=== PATIENT | female | born 1965 | race Caucasian/White ===

== ENCOUNTER 2020-03-26 20:24 | Emergency (ER) | payer OTHER ==
[2020-03-26] MEDS ORDERED: Aspirin 81 MG Tab.Chew PO ONE (20:39)
[2020-03-26] MEDS ORDERED: Sodium Chloride 0.9% 10 ML Syringe FLUSH PRN (20:39)
--- NOTE | 2020-03-26 21:00 | EDM.PDOC ---
<SydNarayan Milagros - Last Filed: 03/27/20 00:35> ED HPI GENERAL MEDICAL PROBLEM - General Chief Complaint: Chest Pain Stated Complaint: CHEST PAIN Time Seen by Provider: 03/26/20 20:34 - Related Data Allergies Allergy/AdvReac Type Severity Reaction Status Date / Time cantaloupe Allergy Anaphylactic Verified 03/26/20 20:40 Shock Home Meds: Home Meds . [No Known Home Meds] 03/26/20 [History] Course - Vital Signs Last Recorded V/S: Last Vital Signs Temp 98.3 F 03/27/20 00:30 Pulse 52 L 03/27/20 00:30 Resp 16 03/27/20 00:30 BP 109/70 03/27/20 00:30 Pulse Ox 97 03/27/20 00:30 - Orders/Labs/Meds Labs: Laboratory Tests 03/26/20 03/26/20 03/26/20 Range/Units 20:35 20:35 20:35 WBC 11.97 H (3.98-10.04) K/mm3 RBC 5.17 (3.98-5.22) M/mm3 Hgb 15.4 (11.2-15.7) gm/dl Hct 45.8 H (34.1-44.9) % MCV 88.6 (79.4-94.8) fl MCH 29.8 (25.6-32.2) pg MCHC 33.6 (32.2-35.5) g/dl RDW Std Deviation 43.0 (36.4-46.3) fL Plt Count 264 (182-369) K/mm3 MPV 10.5 (9.4-12.3) fl Neut % (Auto) 52.2 (34.0-71.1) % Lymph % (Auto) 36.8 (19.3-51.7) % [place] % (Auto) 6.3 (4.7-12.5) % Eos % (Auto) 4.1 (0.7-5.8) Baso % (Auto) 0.3 (0.1-1.2) % Neut # (Auto) 6.26 H (1.56-6.13) K/mm3 Lymph # (Auto) 4.40 H (1.18-3.74) K/mm3 [place] # (Auto) 0.76 H (0.24-0.36) K/mm3 Eos # (Auto) 0.49 H (0.04-0.36) K/mm3 Baso # (Auto) 0.03 (0.01-0.08) K/mm3 Manual Slide Review Normal smear D-Dimer, Quantitative 0.32 (0.19-0.50) mg/L Sodium 144 (136-145) mEq/L Potassium 3.8 (3.5-5.1) mEq/L Chloride 105 (98-107) mEq/L Carbon Dioxide 29 (21-32) mEq/L Anion Gap 13.8 (5-15) BUN 10 (7-18) mg/dL Creatinine 1.0 (0.55-1.02) mg/dL Est Cr Clr Drug Dosing 56.53 mL/min Estimated GFR (MDRD) 57 (>60) mL/min BUN/Creatinine Ratio 10.0 L (14-18) Glucose 121 H (74-106) mg/dL Calcium 9.1 (8.5-10.1) mg/dL Total Bilirubin 0.8 (0.2-1.0) mg/dL AST 67 H (15-37) U/L ALT 43 (14-59) U/L Alkaline Phosphatase 122 H (46-116) U/L Troponin I < 0.017 (0.00-0.056) ng/mL Total Protein 8.4 H (6.4-8.2) g/dl Albumin 4.6 (3.4-5.0) g/dl Globulin 3.8 gm/dL Albumin/Globulin Ratio 1.2 (1-2) 03/26/20 Range/Units 23:30 WBC (3.98-10.04) K/mm3 RBC (3.98-5.22) M/mm3 Hgb (11.2-15.7) gm/dl Hct (34.1-44.9) % MCV (79.4-94.8) fl MCH (25.6-32.2) pg MCHC (32.2-35.5) g/dl RDW Std Deviation (36.4-46.3) fL Plt Count (182-369) K/mm3 MPV (9.4-12.3) fl Neut % (Auto) (34.0-71.1) % Lymph % (Auto) (19.3-51.7) % [place] % (Auto) (4.7-12.5) % Eos % (Auto) (0.7-5.8) Baso % (Auto) (0.1-1.2) % Neut # (Auto) (1.56-6.13) K/mm3 Lymph # (Auto) (1.18-3.74) K/mm3 [place] # (Auto) (0.24-0.36) K/mm3 Eos # (Auto) (0.04-0.36) K/mm3 Baso # (Auto) (0.01-0.08) K/mm3 Manual Slide Review D-Dimer, Quantitative (0.19-0.50) mg/L Sodium (136-145) mEq/L Potassium (3.5-5.1) mEq/L Chloride (98-107) mEq/L Carbon Dioxide (21-32) mEq/L Anion Gap (5-15) BUN (7-18) mg/dL Creatinine (0.55-1.02) mg/dL Est Cr Clr Drug Dosing mL/min Estimated GFR (MDRD) (>60) mL/min BUN/Creatinine Ratio (14-18) Glucose (74-106) mg/dL Calcium (8.5-10.1) mg/dL Total Bilirubin (0.2-1.0) mg/dL AST (15-37) U/L ALT (14-59) U/L Alkaline Phosphatase (46-116) U/L Troponin I < 0.017 (0.00-0.056) ng/mL Total Protein (6.4-8.2) g/dl Albumin (3.4-5.0) g/dl Globulin gm/dL Albumin/Globulin Ratio (1-2) Meds: Medications Discontinued Medications Generic Name Dose Route Start Last Admin Trade Name Freq PRN Reason Stop Dose Admin Aspirin 324 mg 03/26/20 20:39 03/26/20 20:43 Aspirin PO 03/26/20 20:40 324 mg ONETIME ONE Administration Sodium Chloride 10 ml 03/26/20 20:39 03/26/20 20:44 Saline Flush FLUSH 10 ml ASDIRECTED PRN Administration Keep Vein Open - Re-Assessments/Exams Free Text/Narrative Re-Assessment/Exam: 03/27/20 00:35 Patient second troponin came back negative. 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 I did use the heart score to evaluate her risk and she has a heart score of 3 one-point for a moderate Jordon suspicious history one- point for her age and one point for risk factors namely family history her troponins were negative. I did inform her her heart score came out to 3 which is considered low risk however 1.7% of the people that have the score applied to them will have a major coronary artery event within the next 6 weeks. The patient understands this and wishes to be discharged home. The patient needs to discuss with her regular provider the pros and cons of having a stress test done. I think given her running history and no anginal equivalents with this her situation is very reassuring however underlying coronary artery disease cannot be fully excluded. Departure - Departure Time of Disposition: 00:37 Disposition: Home, Self-Care 01 Clinical Impression: Atypical chest pain Instructions: Nonspecific Chest Pain, Adult, [id number] Referrals: Joanna Schulte PA-C [Primary Care Provider] - Forms: ED Department Discharge Additional Instructions: You were seen in the emergency department today for an episode of midsternal chest pain. Your work-up included blood work, an EKG of your heart, and a chest x-ray. Your work-up was found to be normal. Your cardiac enzymes did not elevate indicating that you did not have a heart attack. While the exact cause of your pain is unknown, it is possible that it is the result of esophageal spasm. I would recommend that you schedule follow-up appointment with your primary care provider for next week and discussed the option of an outpatient stress test. If you should experience any recurrence of chest pain or any other symptoms of concern, please do not hesitate to return to the emergency department. Sepsis Event Note - Focused Exam Date Exam was Performed: 03/27/20 Time Exam was Performed: 00:35 <Chelsie Merritt - Last Filed: 03/30/20 11:15> ED HPI GENERAL MEDICAL PROBLEM - General Source of Information: Reports: Patient History Limitations: Reports: No Limitations - History of Present Illness INITIAL COMMENTS - FREE TEXT/NARRATIVE: Patient is a 54-year-old female who presents to the emergency department with acute onset of retrosternal chest pain that started approximately 30 minutes prior to arrival. Patient states that she was taping off a doorway when the pain began. She described it as a dull pressure in her lower sternal area. She denies shortness of breath, nausea or diaphoresis associated with this pain. The pain has improved immensely since arriving to the ER. She has no significant cardiac history and has never had an UT that she is aware of. She states that she has had pain similar to this in the past, however she has never come to the ER for it and it generally resolves on its own. She states that she does normally have bradycardia. She denies history of GERD. 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 Denies: Fever, Chills, Diaphoresis HEENT: Reports: No Symptoms Respiratory: Reports: No Symptoms. Denies: Shortness of Breath, Cough Cardiovascular: Reports: Chest Pain. Denies: Dyspnea on Exertion, Lightheadedness, Palpitations, Syncope Endocrine: Reports: No Symptoms GI/Abdominal: Reports: No Symptoms. Denies: Abdominal Pain, Nausea, Vomiting : Reports: No Symptoms Musculoskeletal: Reports: No Symptoms Skin: Reports: No Symptoms Neurological: Reports: No Symptoms Psychiatric: Reports: No Symptoms Hematologic/Lymphatic: Reports: No Symptoms Immunologic: Reports: No Symptoms ED EXAM, GENERAL - Physical Exam Exam: See Below Exam Limited By: No Limitations General Appearance: Alert, WD/WN, No Apparent Distress Respiratory/Chest: No Respiratory Distress, Lungs Clear, Normal Breath Sounds, No Accessory Muscle Use, Chest Non-Tender Cardiovascular: Normal Peripheral Pulses, Regular Rate, Rhythm, No Edema, No Gallop, No JVD, No Murmur, No Rub GI/Abdominal: Normal Bowel Sounds, Soft, No Organomegaly, No Distention, No Abnormal Bruit, No Mass, Tender (Epigastric) Extremities: Normal Inspection, Normal Range of Motion, Non-Tender, Normal Capillary Refill, No Pedal Edema Neurological: Alert, Oriented, CN II-XII Intact, Normal Cognition, Normal Gait, Normal Reflexes, No Motor/Sensory Deficits Psychiatric: Normal Affect, Normal Mood Skin Exam: Warm, Dry, Intact, Normal Color, No Rash EKG INTERPRETATION EKG Date: 03/26/20 Time: 20:32 Rhythm: NSR Rate (Beats/Min): 49 Powell: Normal P-Wave: Present QRS: Normal ST-T: Normal QT: Normal Comparison: NA - No Prior EKG EKG Interpretation Comments: Nondiagnostic ST depression EKG interpreted by Dr. Syd MD. Course - Orders/Labs/Meds Labs: Laboratory Tests 03/26/20 03/26/20 03/26/20 Range/Units 20:35 20:35 20:35 WBC 11.97 H (3.98-10.04) K/mm3 RBC 5.17 (3.98-5.22) M/mm3 Hgb 15.4 (11.2-15.7) gm/dl Hct 45.8 H (34.1-44.9) % MCV 88.6 (79.4-94.8) fl MCH 29.8 (25.6-32.2) pg MCHC 33.6 (32.2-35.5) g/dl RDW Std Deviation 43.0 (36.4-46.3) fL Plt Count 264 (182-369) K/mm3 MPV 10.5 (9.4-12.3) fl Neut % (Auto) 52.2 (34.0-71.1) % Lymph % (Auto) 36.8 (19.3-51.7) % [place] % (Auto) 6.3 (4.7-12.5) % Eos % (Auto) 4.1 (0.7-5.8) Baso % (Auto) 0.3 (0.1-1.2) % Neut # (Auto) 6.26 H (1.56-6.13) K/mm3 Lymph # (Auto) 4.40 H (1.18-3.74) K/mm3 [place] # (Auto) 0.76 H (0.24-0.36) K/mm3 Eos # (Auto) 0.49 H (0.04-0.36) K/mm3 Baso # (Auto) 0.03 (0.01-0.08) K/mm3 Manual Slide Review Normal smear D-Dimer, Quantitative 0.32 (0.19-0.50) mg/L Sodium 144 (136-145) mEq/L Potassium 3.8 (3.5-5.1) mEq/L Chloride 105 (98-107) mEq/L Carbon Dioxide 29 (21-32) mEq/L Anion Gap 13.8 (5-15) BUN 10 (7-18) mg/dL Creatinine 1.0 (0.55-1.02) mg/dL Est Cr Clr Drug Dosing 56.53 mL/min Estimated GFR (MDRD) 57 (>60) mL/min BUN/Creatinine Ratio 10.0 L (14-18) Glucose 121 H (74-106) mg/dL Calcium 9.1 (8.5-10.1) mg/dL Total Bilirubin 0.8 (0.2-1.0) mg/dL AST 67 H (15-37) U/L ALT 43 (14-59) U/L Alkaline Phosphatase 122 H (46-116) U/L Troponin I < 0.017 (0.00-0.056) ng/mL Total Protein 8.4 H (6.4-8.2) g/dl Albumin 4.6 (3.4-5.0) g/dl Globulin 3.8 gm/dL Albumin/Globulin Ratio 1.2 (1-2) /14 Range/Units 23:30 WBC (3.98-10.04) K/mm3 RBC (3.98-5.22) M/mm3 Hgb (11.2-15.7) gm/dl Hct (34.1-44.9) % MCV (79.4-94.8) fl MCH (25.6-32.2) pg MCHC (32.2-35.5) g/dl RDW Std Deviation (36.4-46.3) fL Plt Count (182-369) K/mm3 MPV (9.4-12.3) fl Neut % (Auto) (34.0-71.1) % Lymph % (Auto) (19.3-51.7) % [place] % (Auto) (4.7-12.5) % Eos % (Auto) (0.7-5.8) Baso % (Auto) (0.1-1.2) % Neut # (Auto) (1.56-6.13) K/mm3 Lymph # (Auto) (1.18-3.74) K/mm3 [place] # (Auto) (0.24-0.36) K/mm3 Eos # (Auto) (0.04-0.36) K/mm3 Baso # (Auto) (0.01-0.08) K/mm3 Manual Slide Review D-Dimer, Quantitative (0.19-0.50) mg/L Sodium (136-145) mEq/L Potassium (3.5-5.1) mEq/L Chloride (98-107) mEq/L Carbon Dioxide (21-32) mEq/L Anion Gap (5-15) BUN (7-18) mg/dL Creatinine (0.55-1.02) mg/dL Est Cr Clr Drug Dosing mL/min Estimated GFR (MDRD) (>60) mL/min BUN/Creatinine Ratio (14-18) Glucose (74-106) mg/dL Calcium (8.5-10.1) mg/dL Total Bilirubin (0.2-1.0) mg/dL AST (15-37) U/L ALT (14-59) U/L Alkaline Phosphatase (46-116) U/L Troponin I < 0.017 (0.00-0.056) ng/mL Total Protein (6.4-8.2) g/dl Albumin (3.4-5.0) g/dl Globulin gm/dL Albumin/Globulin Ratio (1-2) - Re-Assessments/Exams Free Text/Narrative Re-Assessment/Exam: 03/26/20 21:57 Work-up thus far has been grossly unremarkable. Troponin was found to be negative., D-dimer is in the normal range. EKG was negative for any acute ischemia. Chest x-ray was normal. We will plan to repeat a troponin at 3 hours from the original draw. 03/26/20 23:15 Patient can continues to be pain-free. I have ordered a repeat troponin and EKG at 2330. Case discussed with Dr. Velarde. He will assume care and disposition of the patient. Departure - Departure Condition: Good Sepsis Event Note - Evaluation Sepsis Screening Result: No Definite Risk - Focused Exam Date Exam was Performed: 03/30/20 Time Exam was Performed: 11:15
--- NOTE | 2020-03-27 07:51 | CR ---
Chest: 2 views of the chest were obtained. Comparison: No prior chest imaging is available. Heart size and mediastinum are normal. Lungs are clear with no acute parenchymal change. Bony structures are unremarkable. Impression: 1. Nothing acute is seen on 2 view chest x-ray. Diagnostic code #1 This report was dictated in MDT
== END 2020-03-27 00:41 | disposition home or self-care (01) ==
LOC: JD.ED 20:24
DX: R07.89 Other chest pain (principal); Z91.018 Allergy to other foods
CPT/HCPCS: 36415; 71046; 80053; 84484; 85025; 85379; 93005; 99285; A9270

== ENCOUNTER 2022-04-01 07:57 | Inpatient (IN) | payer OTHER ==
[2022-04-01] MEDS ORDERED: Sodium Chloride 0.9% 10 ML Syringe FLUSH PRN ×2 (08:02→20:49)
[2022-04-01] MEDS ORDERED: Lactated Ringers 1,000 ML IV SCH (08:15)
[2022-04-01] MEDS ORDERED: Sodium Chloride 0.9% 10 ML Syringe FLUSH SCH (09:00)
[2022-04-01] MEDS ORDERED: Acetaminophen 325 MG Tab PO SCH ×2 (13:00→14:00)
[2022-04-01] MEDS ORDERED: Gabapentin 300 MG Cap PO SCH ×2 (13:00→14:00)
[2022-04-01] MEDS ORDERED: Lidocaine 1% with EPINEPHrine 1:100,000 20 ML MDV ONE ×2 (15:27→15:36)
[2022-04-01] MEDS ORDERED: Bupivacaine 0.5%/EPINEPHrine 1:200,000 50 ML MDV ONE (15:27)
[2022-04-01] MEDS ORDERED: Propofol 200 MG/20 ML SDV ONE ×2 (15:29→20:06)
[2022-04-01] MEDS ORDERED: fentaNYL 250 MCG/5 ML SDV ONE ×2 (15:29→19:36)
[2022-04-01] MEDS ORDERED: Lidocaine 1% 4 ML ONE (15:29)
[2022-04-01] MEDS ORDERED: Midazolam 1 MG/ML 2 ML SDV ONE (15:29)
[2022-04-01] MEDS ORDERED: Dexamethasone 4 MG/ML 5 ML MDV ONE (15:32)
[2022-04-01] MEDS ORDERED: Ondansetron 4 MG/2 ML SDV ONE (15:32)
[2022-04-01] MEDS ORDERED: Rocuronium 50 MG/5 ML Vial ONE ×2 (15:32→18:05)
[2022-04-01] MEDS ORDERED: Scopolamine 1.5 MG Transdermal Patch TOP STA (15:58)
[2022-04-01] MEDS ORDERED: Ondansetron 4 MG/2 ML SDV IVPUSH PRN (16:00)
[2022-04-01] MEDS ORDERED: fentaNYL 100 MCG/2 ML SDV IVPUSH PRN (16:00)
[2022-04-01] MEDS ORDERED: HYDROmorphone 0.5 MG/0.5 ML Syringe IVPUSH PRN ×2 (16:00→20:42)
[2022-04-01] MEDS ORDERED: ceFAZolin 1 GM Vial ONE (17:05)
[2022-04-01] MEDS ORDERED: Lactated Ringers 1,000 ML ONE ×5 (17:46→20:35)
[2022-04-01] MEDS ORDERED: Lidocaine 1% 2 ML ONE (17:50)
[2022-04-01] MEDS ORDERED: Ketorolac 30 MG/ML SDV ONE (17:55)
[2022-04-01] MEDS ORDERED: HYDROmorphone 0.5 MG/0.5 ML Syringe ONE ×2 (17:59→18:30)
[2022-04-01] MEDS ORDERED: fentaNYL 100 MCG/2 ML SDV ONE (19:36)
[2022-04-01] MEDS ORDERED: oxyCODONE 5 MG Tab PO PRN (20:29)
[2022-04-01] MEDS ORDERED: Dextrose 5%-0.45% NaCl 1,000 ML IV SCH (20:30)
[2022-04-01] MEDS: Ibuprofen 600 MG Tab PO SCH (22:13)
[2022-04-01] MEDS: Acetaminophen 325 MG Tab PO SCH (22:14)
[2022-04-01] MEDS: metroNIDAZOLE/Normal Saline 500 MG in Premix Bag 1 BAG IV ONE ×2 (23:17→23:18)
[2022-04-01] MEDS: metroNIDAZOLE/Normal Saline 500 MG in Premix Bag 1 BAG IV SCH (23:18)
[2022-04-01] MEDS: Ondansetron 4 MG Tab.DIS PO SCH (23:58)
[2022-04-02] MEDS: ceFAZolin 1 GM in Sodium Chloride 0.9% 50 ML IV SCH ×3 (00:23→06:08)
[2022-04-02] MEDS: Acetaminophen 325 MG Tab PO SCH ×7 (00:43→23:47)
[2022-04-02] MEDS: Ibuprofen 600 MG Tab PO SCH ×5 (00:54→19:57)
[2022-04-02] MEDS: Ondansetron 4 MG Tab.DIS PO SCH ×4 (05:44→19:57)
[2022-04-02] MEDS: Pantoprazole 40 MG Tab.CR PO SCH (08:45)
[2022-04-02] MEDS: Heparin Sodium 5,000 Units/ML Vial SUBCUT SCH ×3 (08:45→23:46)
[2022-04-02] MEDS: metroNIDAZOLE/Normal Saline 500 MG in Premix Bag 1 BAG IV SCH (08:46)
[2022-04-02] MEDS ORDERED: Non-Formulary Medication 1 Each (Pantoprazole Sodium 40 MG Tablet.Dr) PO SCH (09:00)
[2022-04-03] MEDS: Ondansetron 4 MG Tab.DIS PO SCH ×2 (02:14→08:46)
[2022-04-03] MEDS: Ibuprofen 600 MG Tab PO SCH ×2 (02:14→08:46)
[2022-04-03] MEDS: Acetaminophen 325 MG Tab PO SCH ×2 (04:55→08:47)
[2022-04-03] MEDS: Heparin Sodium 5,000 Units/ML Vial SUBCUT SCH (08:46)
[2022-04-03] MEDS: Pantoprazole 40 MG Tab.CR PO SCH (08:46)
== END 2022-04-03 12:04 | disposition home or self-care (01) | DRG 329 ==
LOC: JD.MS 12:29
PROVIDERS: ADMIT Surgery; ATTEND Surgery
PROC: 0DTF0ZZ Resection of Right Large Intestine, Open Approach (ICD-10-PCS; principal; 2022-04-01)
PROC: 0WQF0ZZ Repair Abdominal Wall, Open Approach (ICD-10-PCS; 2022-04-01)
PROC: 0DBU0ZZ Excision of Omentum, Open Approach (ICD-10-PCS; 2022-04-01)
DX: D37.3 Neoplasm of uncertain behavior of appendix (principal); K35.33 Acute appendicitis with perforation, localized peritonitis, and gangrene, with abscess; E61.1 Iron deficiency; K42.9 Umbilical hernia without obstruction or gangrene; R59.1 Generalized enlarged lymph nodes; Z79.899 Other long term (current) drug therapy; Z91.018 Allergy to other foods
CPT/HCPCS: 36415; 80048; 85025; 86850; 86900; 86901; A9270-GY; J0690; J1100; J1170; J1644; J1885; J2250; J2405; J2704; J2710; J3010; J3490; J7042; J7120

== ENCOUNTER 2022-05-18 07:05 | Day surgery (SDC) | payer OTHER ==
[~2022-05-18 07:05] MED LIST: Lactated Ringers 1,000 ML IV SCH; Lidocaine 1%/Sod Bicarbonate in NS 8.4% 1 ML Syringe IDERM PRN; Sodium Chloride 0.9% 10 ML Syringe FLUSH PRN; Sodium Chloride 0.9% 10 ML Syringe FLUSH SCH
[2022-05-18] MEDS ORDERED: Propofol 200 MG/20 ML SDV ONE ×2 (07:06→08:59)
[2022-05-18] MEDS ORDERED: ceFAZolin 2 GM Vial ONE (07:06)
[2022-05-18] MEDS ORDERED: fentaNYL 100 MCG/2 ML SDV ONE (07:06)
[2022-05-18] MEDS ORDERED: Midazolam 1 MG/ML 2 ML SDV ONE (07:06)
[2022-05-18] MEDS ORDERED: Lidocaine 1% 4 ML ONE (07:06)
[2022-05-18] MEDS ORDERED: Ondansetron 4 MG/2 ML SDV ONE (07:06)
[2022-05-18] MEDS ORDERED: Lactated Ringers 1,000 ML ONE (07:06)
[2022-05-18] MEDS ORDERED: Lidocaine 1% with EPINEPHrine 1:100,000 20 ML MDV ONE (07:20)
[2022-05-18] MEDS ORDERED: Scopolamine 1.5 MG Transdermal Patch TRDERM PRN (08:00)
[2022-05-18] MEDS ORDERED: ePHEDrine 50 MG/ML SDV ONE (08:25)
[2022-05-18] MEDS ORDERED: Ondansetron 4 MG/2 ML SDV IVPUSH PRN (08:35)
[2022-05-18] MEDS ORDERED: fentaNYL 100 MCG/2 ML SDV IVPUSH PRN (08:35)
[2022-05-18] MEDS ORDERED: ePHEDrine 50 MG/ML SDV IVPUSH PRN (08:35)
[2022-05-18] MEDS ORDERED: Phenylephrine 1% 10 MG/ML SDV IVPUSH PRN (08:35)
[2022-05-18] MEDS ORDERED: diphenhydrAMINE 50 MG/ML SDV IVPUSH PRN (08:35)
[2022-05-18] MEDS: Lidocaine 1% with EPINEPHrine 1:100,000 20 ML MDV ONE ×2 (08:36→08:55)
[2022-05-18] MEDS: Sodium Chloride 0.9% 50 ML SDV ONE ×2 (08:55→09:04)
== END 2022-05-18 10:25 | disposition home or self-care (01) ==
LOC: JD.SDS 07:05
PROVIDERS: ATTEND Surgery
DX: C18.1 Malignant neoplasm of appendix (principal); K21.9 Gastro-esophageal reflux disease without esophagitis; Z90.49 Acquired absence of other specified parts of digestive tract; Z88.8 Allergy status to other drugs, medicaments and biological substances; Z91.018 Allergy to other foods
CPT/HCPCS: 36561; 71045; 76000; C1751; C1788; J0690; J1642; J2250; J2405; J2704; J3010; J7120